=== PATIENT | male | born 1950 | race Caucasian/White ===

== ENCOUNTER 2019-10-23 19:07 | Emergency (ER) | payer MEDICARE, OTHER ==
[2019-10-23] MEDS ORDERED: Sodium Chloride 0.9% 1,000 ML IV ONE (19:22)
[2019-10-23] MEDS ORDERED: Sodium Chloride 0.9% 10 ML Syringe FLUSH PRN (19:22)
[2019-10-23] MEDS ORDERED: cefTRIAXone 2 GM Vial IV ONE (19:22)
--- NOTE | 2019-10-23 19:46 | EDM.PDOC ---
ED HPI GENERAL MEDICAL PROBLEM - General Chief Complaint: General Stated Complaint: weakness Time Seen by Provider: 10/23/19 19:25 Source of Information: Reports: Patient, Family History Limitations: Reports: No Limitations - History of Present Illness INITIAL COMMENTS - FREE TEXT/NARRATIVE: Patient presents to ER per EMS with weakness/near syncope. Is 8 days status post chemotherapy. States had 5 days of infusions for "metastatic testicular cancer". Was diagnosed approximately 2 months ago. Has not been eating or drinking well. States able to tolerate his breakfast in the morning but does not do well after that due to nausea. He started feeling more weak and chilled yesterday. Not aware of a fever at home. Has chronic cough related to "50 years of smoking". Also states shortness of breath related to same. No chest pain. Does have abdominal pain, is taking morphine for that. Has urinary hesitancy. No dysuria. Onset: Gradual Duration: Day(s):, Getting Worse Location: Reports: Generalized Associated Symptoms: Reports: Cough, Fever/Chills, Loss of Appetite, Nausea/ Vomiting, Shortness of Breath, Syncope, Weakness. Denies: Confusion, Chest Pain - Related Data Allergies Allergy/AdvReac Type Severity Reaction Status Date / Time hydrocodone Allergy Itching Verified 10/23/19 19:19 oxycodone Allergy Itching Verified 10/23/19 19:19 Home Meds: Home Meds Heparin Sodium [Heparin Lock Flush 100 Units/ML] 300 unit FLUSH DAILY 10/23/19 [ History] Morphine 15 mg PO Q6H PRN 10/23/19 [History] Omeprazole 20 mg PO DAILY PRN 10/23/19 [History] Ondansetron [Zofran] 4 mg PO Q6H PRN 10/23/19 [History] Ondansetron [Zofran] 8 mg PO Q8H PRN 10/23/19 [History] Prochlorperazine [Compazine] 10 mg PO QID PRN 10/23/19 [History] dexAMETHasone [Dexamethasone] 2 tab PO ASDIRECTED 10/23/19 [History] Past Medical History HEENT History: Reports: Hard of Hearing Psychiatric History: Reports: ADHD, Other (See Below) Other Psychiatric History: alcoholism Oncologic (Cancer) History: Reports: Bladder, Other (See Below) Other Oncologic History: seminoma Social & Family History - Tobacco Use Smoking Status *Q: Former Smoker Used Tobacco, but Quit: Yes Month/Year Tobacco Last Used: august 2019 ED ROS GENERAL - Review of Systems Review Of Systems: See Below Constitutional: Reports: Fever, Chills, Malaise, Weakness, Fatigue, Decreased Appetite. Denies: Diaphoresis HEENT: Denies: Ear Pain, Sinus Problem, Throat Pain Respiratory: Reports: Shortness of Breath, Cough Cardiovascular: Denies: Chest Pain, Edema, Lightheadedness Endocrine: Reports: Fatigue GI/Abdominal: Reports: Abdominal Pain, Decreased Appetite, Nausea. Denies: Vomiting : Reports: Urinary Retention. Denies: Dysuria Musculoskeletal: Reports: No Symptoms Skin: Reports: No Symptoms Neurological: Reports: Weakness. Denies: Confusion ED EXAM, GENERAL - Physical Exam Exam: See Below Exam Limited By: No Limitations General Appearance: Alert, WD/WN, No Apparent Distress Ears: Normal External Exam, Normal TMs Nose: Normal Inspection, Normal Mucosa Throat/Mouth: Normal Inspection, Normal Oropharynx Head: Normocephalic Neck: Normal Inspection, Supple, Non-Tender Respiratory/Chest: No Respiratory Distress, Lungs Clear, Normal Breath Sounds Cardiovascular: Regular Rate, Rhythm, No Edema GI/Abdominal: Normal Bowel Sounds, Soft, Tender Extremities: Normal Inspection, No Pedal Edema Neurological: Alert, Oriented Skin Exam: Warm, Dry Course - Vital Signs Last Recorded V/S: Last Vital Signs Temp 100.4 F 10/23/19 21:44 Pulse 88 10/23/19 20:46 Resp 18 10/23/19 20:46 BP 122/73 10/23/19 20:46 Pulse Ox 98 10/23/19 20:46 - Orders/Labs/Meds Orders: Active Orders 24 hr Category Date Time Status Chest 1V Frontal [CR] Stat Exams 10/23/19 19:22 Taken CULTURE BLOOD [BC] Stat Lab 10/23/19 19:37 Received CULTURE BLOOD [BC] Stat Lab 10/23/19 19:43 Received UA W/MICROSCOPIC [URIN] Stat Lab 10/23/19 19:22 Ordered Pharmacy to Dose - Vancomycin Med 10/23/19 19:56 Pending 1 dose .XX ONETIME ONE Blood Culture x2 Reflex Set [OM.PC] Stat Oth 10/23/19 19:22 Ordered Saline Lock Insert [OM.PC] Stat Oth 10/23/19 19:22 Ordered Severe Sepsis Onset Time [OM.PC] Stat Oth 10/23/19 19:22 Ordered Medication Orders Vancomycin HCl (Pharmacy To Dose - Vancomycin) 1 dose .XX ONETIME ONE Stop: 10/23/19 19:57 Labs: Laboratory Tests 10/23/19 10/23/19 10/23/19 Range/Units 19:37 19:37 19:37 WBC 0.5 L* (4.0-10.0) x10^3/uL RBC 3.55 L (4.5-6.0) x10^6/uL Hgb 10.1 L (14.0-18.0) g/dL Hct 29.8 L (40.0-52.0) % MCV 83.9 (78.0-93.0) fL MCH 28.5 (26.0-32.0) pg MCHC 33.9 (32.0-36.0) g/dL RDW Coeff of Norm 15.1 H (10.0-15.0) % Plt Count 39 L* (130-400) x10^3/uL Add Manual Diff Yes Lymphocytes % (Manual) 72 H (25-50) % Monocytes % (Manual) 28 H (2-11) % Platelet Estimate Marked dec L Anisocytosis Rare Macrocytosis Rare Sodium 124 L* (136-145) mmol/L Potassium 4.0 (3.5-5.1) mmol/L Chloride 91 L (98-107) mmol/L Carbon Dioxide 22 (21-32) mmol/L Anion Gap 15.0 (10-20) mmol/L BUN 17 (7-18) mg/dL Creatinine 1.1 (0.70-1.30) mg/dL Est Cr Clr Drug Dosing 73.65 mL/min Estimated GFR (MDRD) > 60 Glucose 104 (74-106) mg/dL Lactic Acid 1.1 (0.4-2.0) mmol/L Calcium 8.5 (8.5-10.1) mg/dL Corrected Calcium 9.38 (8.5-10.1) mg/dL Total Bilirubin 1.2 H (0.2-1.0) mg/dL AST 34 (15-37) U/L ALT 36 (16-63) U/L Alkaline Phosphatase 76 (46-116) U/L Total Protein 7.4 (6.4-8.2) g/dL Albumin 2.9 L (3.4-5.0) g/dL Globulin 4.5 Albumin/Globulin Ratio 0.64 SARS-CoV-2 RNA (RT-PCR) (NEGATIVE) 10/23/19 Range/Units 19:55 WBC (4.0-10.0) x10^3/uL RBC (4.5-6.0) x10^6/uL Hgb (14.0-18.0) g/dL Hct (40.0-52.0) % MCV (78.0-93.0) fL MCH (26.0-32.0) pg MCHC (32.0-36.0) g/dL RDW Coeff of Norm (10.0-15.0) % Plt Count (130-400) x10^3/uL Add Manual Diff Lymphocytes % (Manual) (25-50) % Monocytes % (Manual) (2-11) % Platelet Estimate Anisocytosis Macrocytosis Sodium (136-145) mmol/L Potassium (3.5-5.1) mmol/L Chloride (98-107) mmol/L Carbon Dioxide (21-32) mmol/L Anion Gap (10-20) mmol/L BUN (7-18) mg/dL Creatinine (0.70-1.30) mg/dL Est Cr Clr Drug Dosing mL/min Estimated GFR (MDRD) Glucose (74-106) mg/dL Lactic Acid (0.4-2.0) mmol/L Calcium (8.5-10.1) mg/dL Corrected Calcium (8.5-10.1) mg/dL Total Bilirubin (0.2-1.0) mg/dL AST (15-37) U/L ALT (16-63) U/L Alkaline Phosphatase (46-116) U/L Total Protein (6.4-8.2) g/dL Albumin (3.4-5.0) g/dL Globulin Albumin/Globulin Ratio SARS-CoV-2 RNA (RT-PCR) Negative (NEGATIVE) Meds: Medications Generic Name Dose Route Start Last Admin Trade Name Freq PRN Reason Stop Dose Admin Vancomycin HCl 1 dose 10/23/19 19:56 Pharmacy To Dose - Vancomycin .XX 10/23/19 19:57 ONETIME ONE Discontinued Medications Generic Name Dose Route Start Last Admin Trade Name Freq PRN Reason Stop Dose Admin Acetaminophen 650 mg 10/23/19 20:21 10/23/19 20:45 Tylenol PO 10/23/19 20:22 650 mg NOW ONE Administration Ceftriaxone Sodium 2 gm 10/23/19 19:22 10/23/19 19:44 Rocephin IV 10/23/19 19:23 2 gm STAT ONE Administration Sodium Chloride 1,000 mls @ 250 mls/hr 10/23/19 19:22 10/23/19 19:44 Normal Saline IV 10/23/19 23:21 250 mls/hr BOLUS ONE Administration Vancomycin HCl 1.5 gm/ Premix 300 mls @ 300 mls/hr 10/23/19 20:15 10/23/19 20 :15 IV 10/23/19 21:14 300 mls/hr ONETIME ONE Administration Ondansetron HCl 4 mg 10/23/19 20:05 10/23/19 20:13 Zofran IVPUSH 4 mg Q8H PRN Administration Nausea Sodium Chloride 10 ml 10/23/19 19:22 10/23/19 19:44 Saline Flush FLUSH 10 ml ASDIRECTED PRN Administration Keep Vein Open - Re-Assessments/Exams Free Text/Narrative Re-Assessment/Exam: 10/23/19 20:40 labs reviewed. WBC is low at 0.5, platelets 39. Sodium 124. Lactic acid is negative. COVID negative. 2049-Contacted [facility] Hospitalist Dr. Mortensen in regards to patient status. Agreed to accept the patient in transfer. Patient and daughter informed. Departure - Departure Time of Disposition: 20:57 Disposition: DC/Tfer to [facility] 02 Condition: Undetermined Clinical Impression: Leukopenia due to antineoplastic chemotherapy, Fever of unknown origin, Hyponatremia - Discharge Information *PRESCRIPTION DRUG MONITORING PROGRAM REVIEWED*: No *COPY OF PRESCRIPTION DRUG MONITORING REPORT IN PATIENT URIEL: No Referrals: Angela Sunshine MD [Primary Care Provider] - Forms: ED Department Discharge, Interfacility Transfer EMTALA Additional Instructions: Transfer to [facility] per ALS, accepting physician Dr. Mortensen. Sepsis Event Note (ED) - Evaluation Sepsis Screening Result: Possible Sepsis Risk - Focused Exam Vital Signs: Vital Signs Temp Temp Pulse Resp BP Pulse Ox 10/23/19 21:44 100.4 F 10/23/19 21:15 100.4 F 10/23/19 20:46 102.9 F H 88 18 122/73 98 10/23/19 20:45 102.9 F H 10/23/19 19:10 103.2 F H 92 18 124/74 97 - My Orders Last 24 Hours: My Active Orders 10/23/19 19:22 Chest 1V Frontal [CR] Stat UA W/MICROSCOPIC [URIN] Stat Blood Culture x2 Reflex Set [OM.PC] Stat Saline Lock Insert [OM.PC] Stat Severe Sepsis Onset Time [OM.PC] Stat 10/23/19 19:37 CULTURE BLOOD [BC] Stat 10/23/19 19:43 CULTURE BLOOD [BC] Stat 10/23/19 19:56 Pharmacy to Dose - Vancomycin 1 dose .XX ONETIME ONE - Assessment/Plan Last 24 Hours: My Active Orders 10/23/19 19:22 Chest 1V Frontal [CR] Stat UA W/MICROSCOPIC [URIN] Stat Blood Culture x2 Reflex Set [OM.PC] Stat Saline Lock Insert [OM.PC] Stat Severe Sepsis Onset Time [OM.PC] Stat 10/23/19 19:37 CULTURE BLOOD [BC] Stat 10/23/19 19:43 CULTURE BLOOD [BC] Stat 10/23/19 19:56 Pharmacy to Dose - Vancomycin 1 dose .XX ONETIME ONE
[2019-10-23] MEDS ORDERED: Ondansetron 4 MG/2 ML SDV IVPUSH PRN (20:05)
[2019-10-23 20:08] LABS: CHLORIDE,CL 91 mmol/L (98-107)
[2019-10-23 20:10] LABS: SODIUM,NA 124 mmol/L (136-145)
[2019-10-23] MEDS ORDERED: Acetaminophen 325 MG Tab PO ONE (20:21)
--- NOTE | 2019-10-24 12:14 | CR ---
[id number] RAD/RAD Chest PA or AP 1V EXAM: FRONTAL CHEST INDICATION: FEVER COMPARISON: None. DISCUSSION: Borderline heart size. No acute infiltrates are identified. Mild left hilar prominence could relate to underlying adenopathy. Chest CT could provide further evaluation. IMPRESSION: 1. No acute infiltrates are identified. 2. Mild left hilar prominence could relate to adenopathy. Chest CT with contrast could provide further characterization. Leopoldo Dempsey MD 10/24/19 [id number] Thank you for allowing us to participate in the care of your patient.
== END 2019-10-23 21:45 | disposition short-term general hospital (02) ==
LOC: VM.ED 19:07
DX: D70.1 Agranulocytosis secondary to cancer chemotherapy (principal); T45.1X5A Adverse effect of antineoplastic and immunosuppressive drugs, initial encounter; R50.9 Fever, unspecified; E87.1 Hypo-osmolality and hyponatremia; Z20.828 Contact with and (suspected) exposure to other viral communicable diseases; Z88.5 Allergy status to narcotic agent; Z87.891 Personal history of nicotine dependence
CPT/HCPCS: 36415; 71045; 80053; 83605; 85025; 87040; 96361; 96365; 96372; 96375; 99284; 99285; A9270; J0696; J2405; J3370; J7030; U0002

== ENCOUNTER 2021-07-02 15:13 | Inpatient (IN) | payer MEDICARE, OTHER ==
[2021-07-02] MEDS ORDERED: Sodium Chloride 0.9% 10 ML Syringe FLUSH PRN (15:27)
[2021-07-02] MEDS ORDERED: Sodium Chloride 0.9% 1,000 ML IV ONE ×2 (15:27→16:30)
[2021-07-02] MEDS ORDERED: Acetaminophen 500 MG Tab PO ONE (15:35)
[2021-07-02] MEDS: Cefepime 2 GM in Sodium Chloride 0.9% 100 ML IV SCH ×2 (16:00→23:41)
[2021-07-02 16:06] LABS: CHLORIDE,CL 100 mmol/L (98-107); SODIUM,NA 132 mmol/L (136-145)
[2021-07-02 16:07] LABS: ANION GAP 12.3 mmol/L (5-15)
[2021-07-02 16:19] LABS: CORONAVIRUS COVID-19 NAA NEGATIVE (NEGATIVE); RESPIRATORY SYNCYTIAL VIR NAA NEGATIVE (NEGATIVE)
[2021-07-02] MEDS ORDERED: Iopamidol 612 MG/ML 100 ML Bottle IVPUSH ONE (17:00)
[2021-07-02] MEDS ORDERED: Acetaminophen 325 MG Tab PO PRN (17:26)
[2021-07-02] MEDS ORDERED: Ondansetron 4 MG/2 ML SDV IV PRN (17:26)
[2021-07-02] MEDS ORDERED: HYDROmorphone 0.5 MG/0.5 ML Syringe IVPUSH PRN (17:26)
[2021-07-02] MEDS ORDERED: oxyCODONE 5 MG Tab PO PRN (17:26)
[2021-07-02] MEDS ORDERED: Ondansetron 4 MG Tab.DIS PO PRN (17:26)
[2021-07-02] MEDS ORDERED: Enoxaparin 40 MG/0.4 ML Syringe SUBCUT SCH (17:30)
[2021-07-02] MEDS ORDERED: Sodium Chloride 0.9% 1,000 ML IV SCH (18:00)
[2021-07-02] MEDS: Acyclovir 200 MG Cap PO SCH (20:18)
[2021-07-03] MEDS: Cefepime 2 GM in Sodium Chloride 0.9% 100 ML IV SCH ×2 (06:30→15:16)
[2021-07-03 07:08] LABS: CHLORIDE,CL 101 mmol/L (98-107); SODIUM,NA 132 mmol/L (136-145)
[2021-07-03 07:13] LABS: ANION GAP 9.8 mmol/L (5-15)
[2021-07-03] MEDS ORDERED: Ferrous Sulfate 325 MG Tab PO SCH (08:00)
[2021-07-03] MEDS ORDERED: Omeprazole 20 MG Cap.CR PO SCH (08:00)
[2021-07-03] MEDS ORDERED: Tamsulosin 0.4 MG Cap.ER PO SCH (08:00)
[2021-07-03] MEDS: Acyclovir 200 MG Cap PO SCH (08:36)
[2021-07-03] MEDS ORDERED: Levofloxacin 500 MG Tab PO SCH (10:00)
[2021-07-03] MEDS ORDERED: Nicotine 14 MG/24 Hr Patch TRDERM SCH (12:45)
== END 2021-07-03 16:30 | disposition home or self-care (01) | DRG 809 ==
LOC: VM.ED 15:13 → VM.MS 17:08
PROVIDERS: ADMIT Family Medicine; ATTEND Family Medicine
DX: D70.9 Neutropenia, unspecified (principal); C92.00 Acute myeloblastic leukemia, not having achieved remission; R19.7 Diarrhea, unspecified; E87.2 Acidosis; C95.90 Leukemia, unspecified not having achieved remission; D61.818 Other pancytopenia; D69.6 Thrombocytopenia, unspecified; D64.9 Anemia, unspecified; R50.81 Fever presenting with conditions classified elsewhere; K52.9 Noninfective gastroenteritis and colitis, unspecified; N40.1 Benign prostatic hyperplasia with lower urinary tract symptoms; J44.9 Chronic obstructive pulmonary disease, unspecified; H91.90 Unspecified hearing loss, unspecified ear; F90.9 Attention-deficit hyperactivity disorder, unspecified type; F17.210 Nicotine dependence, cigarettes, uncomplicated; Z20.822 Contact with and (suspected) exposure to COVID-19; Z85.47 Personal history of malignant neoplasm of testis; Z92.21 Personal history of antineoplastic chemotherapy; Z85.51 Personal history of malignant neoplasm of bladder; Z85.89 Personal history of malignant neoplasm of other organs and systems; Z88.6 Allergy status to analgesic agent; Z88.5 Allergy status to narcotic agent; Z79.899 Other long term (current) drug therapy
CPT/HCPCS: 0241U; 36415; 71046; 74177; 80048; 80053; 81001; 83605; 83735; 84484; 85025; 85610; 86140; 86850; 86900; 86901; 86920; 86922; 87040; 87086; 93005; 93010; 96374; 99284; 99285-25; A9270-GY; J0692; J7030; Q9967